=== PATIENT | male | born 1955 ===

== ENCOUNTER 2017-10-04 21:29 | Emergency (ER) | payer OTHER, BC ==
[2017-10-04 21:45] VITALS: BP 155/87; PULSE 70; RESP 18; TEMP 98.4; O2SAT 99
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
--- NOTE | 2017-10-05 09:48 | RAD ---
PROCEDURE: Right Hip Radiographs. HISTORY: right hip pain COMPARISON: None. FINDINGS: BONES: Normal. No fracture. JOINTS: Normal. SOFT TISSUES: Normal. OTHER FINDINGS: None. IMPRESSION: Normal radiographs of right hip.
--- NOTE | 2017-10-05 09:48 | RAD ---
PROCEDURE: Radiographs of the Right Shoulder HISTORY: r/o fracture COMPARISON: No prior. FINDINGS: BONES: Normal. No fracture. JOINTS: Normal. Glenohumeral and acromioclavicular joints preserved. No osteoarthritis. SOFT TISSUES: Normal. OTHER FINDINGS: None. IMPRESSION: Normal radiographs of the right shoulder.
== END 2017-10-04 23:04 | disposition home or self-care (01) ==
LOC: H.ER 21:29
DX: S46.911A Strain of unspecified muscle, fascia and tendon at shoulder and upper arm level, right arm, initial encounter (principal); M54.5 Low back pain; V43.52XA Car driver injured in collision with other type car in traffic accident, initial encounter; Y92.410 Unspecified street and highway as the place of occurrence of the external cause